=== PATIENT | male | born 1960 | race Caucasian/White ===

== ENCOUNTER 2016-07-23 15:41 | Emergency (ER) | payer OTHER ==
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
[2016-07-23 16:06] VITALS: TEMP 99.4; O2SAT 94
[2016-07-23] MEDS: HYDROmorphone HCL INJ 2 MG/ML VIAL IV ONE (16:35)
[2016-07-23] MEDS: ONDANSETRON INJ 4 MG/2 ML VIAL IV ONE (16:36)
[2016-07-23 17:34] VITALS: BP 125/80
== END 2016-07-23 17:45 | disposition short-term general hospital (02) ==
LOC: ER 15:41 → EDSEX 15:41 → ER 17:45
DX: T23.391A Burn of third degree of multiple sites of right wrist and hand, initial encounter (principal); T22.111A Burn of first degree of right forearm, initial encounter; Z88.2 Allergy status to sulfonamides; W86.1XXA Exposure to industrial wiring, appliances and electrical machinery, initial encounter
CPT/HCPCS: 36415; 80053; 82550; 85025; 93005; J1170; J2405

== ENCOUNTER → 2019-04-27 | Outpatient (CLI) | payer OTHER | LOC: LAB.O 09:40 | PROVIDERS: ATTEND Nurse Practitioner Family | DX: E07.89 Other specified disorders of thyroid (principal); E34.9 Endocrine disorder, unspecified ==